=== PATIENT | female | born 1980 | race Caucasian/White ===

== ENCOUNTER 2016-10-20 12:51 | Emergency (ER) | payer OTHER ==
[2016-10-20 13:15] VITALS: TEMP 97.9
[2016-10-20] MEDS ORDERED: RABIES VACC, HUMAN DIPLOID/PF 2.5 UNIT VIAL (RABAVERT) IM ONE (14:36)
[2016-10-20] MEDS ORDERED: RABIES IMMUNE GLOBULIN 300 UNIT/2 ML VIAL IM ONE ×2 (14:36→15:00)
--- NOTE | 2016-10-20 15:08 | EDPHY ---
H & P Smoking Status: Never smoked Time Seen by Provider: 10/20/16 13:58 HPI/ROS: CHIEF COMPLAINT: Post exposure prophylaxis for rabies HISTORY OF PRESENT ILLNESS: 36-year-old female presents to the emergency department requesting post exposure prophylaxis for rabies. They found a bat in their home that the apparently captured and released and they called [facility] and they were advised to come to the emergency department for rabies immunoglobulin and rabies vaccine. She currently has no complaints. She believes her tetanus shot is current. She has no rash. She had not actually know if she was bitten. REVIEW OF SYSTEMS: Constitutional: No fever, no chills. Eyes: No double or blurry vision. ENT: No sore throat. Respiratory: No cough, no shortness of breath. Cardiac: No chest pain. Gastrointestinal: No abdominal pain, vomiting or diarrhea. Genitourinary: No dysuria. Musculoskeletal: No neck or back pain. Skin: No rashes. Neurological: No headache. (Niesha Orr) Past Medical/Surgical History: Negative (Niesha Orr) Social History: (Niesha Orr) Physical Exam: General Appearance: Alert, no distress. Eyes: Pupils equal and round. Extraocular motions are all intact. ENT: Mouth: Mucous membranes moist. Respiratory: No wheezing, rhonchi, or rales, lungs are clear to auscultation. Cardiovascular: Regular rate and rhythm. Gastrointestinal: Abdomen is soft and nontender, no masses, no rebound or guarding, bowel sounds normal. Neurological: Alert and oriented x 3, cranial nerves II through XII grossly intact Skin: Warm and dry, no rashes. Musculoskeletal: Nontender to palpate along the cervical, thoracic or lumbar spine. Neck is supple. Extremities: Full range of motion and no peripheral edema. Psychiatric: Patient is oriented X 3, there is no agitation. (Niesha Orr) Constitutional: Initial Vital Signs Temperature (C) 36.6 C 10/20/16 13:10 Heart Rate 72 10/20/16 13:10 Respiratory Rate 18 10/20/16 13:10 Blood Pressure 118/83 H 10/20/16 13:10 O2 Sat (%) 96 10/20/16 13:10 O2 Delivery Mode Room Air Allergies/Adverse Reactions: No Known Allergies Allergy (Unverified 10/20/16 13:15) Home Medications: Medication Instructions Recorded NK [No Known Home Meds] 10/20/16 Medical Decision Making ED Course/Re-evaluation: 36-year-old female presents for post exposure prophylaxis for rabies. She was given rabies immunoglobulin and rabies vaccine. I called and spoke with the on- call infectious disease doctor, Dr. Reaves, and the patient was advised to call [facility] on Saturday to arrange for vaccine appointment on October 23. Patient was comfortable with this plan. (Niesha Orr) The patient was evaluated and managed by the physician college sports assistant. I have reviewed this chart and I agree with the findings and plan of care as documented , as indicated by my signature. I am the secondary supervising physician. ( Savanna Dunn) Differential Diagnosis: Including but not limited to rabies exposure, cellulitis, retained foreign body (Niesha Orr) - Data Points Medications Given: Discontinued Medications Rabies Immune Globulin (Imogam Rabies Ht 2ml) 1,034 unit IM .ONCE ONE Stop: 10/20/16 15:01 Last Admin: 10/20/16 16:02 Dose: 1,034 unit Rabies Vaccine Human Diploid Cell (Rabavert) 2.5 unit IM .ONCE ONE Stop: 10/20/16 14:37 Last Admin: 10/20/16 16:01 Dose: 2.5 unit Departure - Departure Disposition: Home, Routine, Self-Care Clinical Impression: Need for post exposure prophylaxis for rabies Condition: Good Instructions: Rabies Vaccine (By injection), Rabies Immune Globulin (By injection) Additional Instructions: Your given rabies immunoglobulin and rabies vaccine in the emergency department today. You need to have additional rabies vaccine on Day 3, 10/23; Day 7, 10/27; and Day 14, 11/03. Call [facility] on Saturday to arrange follow-up appointment for your rabies vaccines. Referrals: [facility] (ED,. [Edm Groups for Call Sched] - As per Instructions (Call Saturday to arrange for a follow-up appointment for rabies vaccine on October 23)
[2016-10-20 16:43] VITALS: BP 120/80; PULSE 68; RESP 16; O2SAT 98
== END 2016-10-20 16:42 | disposition home or self-care (01) ==
PROC: 3E0234Z Introduction of Serum, Toxoid and Vaccine into Muscle, Percutaneous Approach (ICD-10-PCS; principal; 2016-10-20)
DX: Z20.3 Contact with and (suspected) exposure to rabies (principal); Z23 Encounter for immunization